=== PATIENT | female | born 1980 | race African-American/Black ===

== ENCOUNTER → 2016-08-12 | Outpatient (CLI) | payer OTHER ==
[~2016-08-12] MED LIST: ADVAIR 5001 DISK W/D; ALBUTEROL17 GM; ALBUTEROL20 ml INH; AMOXICILLIN PO; ASPIRIN EC81 M1 PO; BAYER CHEWABLE81 MG PO; BREO ELLIPTA 11 EACH; CAL PO; CETIRIZINE HCL10 M1; CLARITIN10 M2; COMBIVENT INH14.7 GM; DIFLUCAN PO; EPIPEN0.3 MG/0.1 IM; FLAGYL PO; FLEXERIL PO; FLEXERIL10 MG PO; FLOMAX0.4 M1; HYDROCODON-ACE1 EAC7 PO; KEFLEX250 M3 PO; LEVOCETIRIZINE D5 MG PO; LINZESS145 MCG; LISINOPRIL10 MG PO; LO/OVRAL-281 TAB PO; LORTAB 5/500 TA1 TA2 PO; LYRICA75 MG PO; MAG PO; MONTELUKAST SOD10 MG; NORCO1 TAB 10/3 PO; OMEPRAZOLE20 M2 PO; OXYCODON-ACETA1 EAC1; PHENERGAN25 MG PO; PROAIR HFA8.5 GM INH; PROMETHAZINE D118 ML; SUMATRIPTAN SUC50 M1; SYMBICORT INH; TRAMADOL HCL50 M2; VERAPAMIL ER120 M1 PO; VICODIN 5/1 TAB 5/50 PO; VITAMIN D35000 UNI1 PO; VITAMIN D5000 UNIT PO; VOLTAREN75 MG PO; ZYVOX; [UNRECOGNIZED DRUG - OTHER] PO
--- NOTE | ~2016-08-12 | US128 ---
[id number] [facility]. [facility] [address] [place], [place] [address] [id number] O MR#: [id number] Acc #: [id number] NAME: ANGEL BUSTAMANTE : 1980 SEX: F STUDY DATE/TIME: 08/12/2016 14:29 UNIT: [facility]US ROOM: STUDY DESCRIPTION: Thyroid Attending Physician: Villa Raphael M.D. Referring Physician: Villa Raphael M.D. Ordering Physician: Villa Raphael M.D. Primary Care Physician: David Magdaleno Jr., A.P.R.N. MEDICAL IMAGING REPORT This report is preliminary unless electronic signature is present EXAM Thyroid ultrasound dated 08/12/2016 CLINICAL HISTORY Thyroid nodule. COMPARISON Chest CT dated 03/05/2016 and older ultrasounds of the thyroid. FINDINGS The right lobe of the gland is mildly heterogeneous. There is a 12 x 6 x 8 mm upper pole nodule. The left lobe of the gland contains a large dominant lower pole nodule measuring 2.4 x 1.9 x 3 cm and a second large nodule measured of 2.3 x 1.2 x 2.4 cm superomedially. The right lobe nodule measured 12 x 6 x 7 mm in March 23, 2015, unchanged and the dominant left lobe nodule was measured at that time of 2.7 x 1.8 x 2.4 cm, not convincingly significantly changed. The smaller left lobe nodule at the time of the prior ultrasound measured 1.9 x 1.1 x 2 cm; and again marginally different but not convincingly changed. IMPRESSION Mildly prominent right but dominant left lobe thyroid nodules none convincingly changed since March 23, 2015. Dictated by... Edvin Torres M.D. THIS IS AN ELECTRONICALLY VERIFIED REPORT Edvin Torres M.D. at 08/13/2016 3:54 PM ROSAS/jaime TD: 08/12/2016 20:57 JOB #: [id number] MEDICAL IMAGING REPORT Page 1 of 1 COPY
== END | disposition home or self-care (01) ==
LOC: CGUS 13:07
DX: E04.1 Nontoxic single thyroid nodule (principal); E04.2 Nontoxic multinodular goiter
CPT/HCPCS: 76536